=== PATIENT | male | born 1945 | race Caucasian/White ===

== ENCOUNTER 2017-09-26 15:53 | Observation (INO) | payer OTHER ==
[2017-09-26] MEDS ORDERED: NA CHLORIDE 0.9% 1,000 ML ONE (16:36)
--- NOTE | 2017-09-26 16:55 | RAD REPORT ---
EXAM DESCRIPTION: CT - Head Brain Wo Cont - 09/26/2017 4:46 pm CLINICAL HISTORY: Syncope COMPARISON: None. TECHNIQUE: Computed axial tomography of the head was obtained. IV contrast was not requested. All CT scans are performed using dose optimization technique as appropriate and may include automated exposure control or mA/KV adjustment according to patient size. FINDINGS: An intracranial bleed is not seen . The ventricles are normal in caliber. No extra-axial fluid collection is noted. Fluid within the sinuses/ mastoids is not seen. IMPRESSION: No acute intracranial abnormality is seen. If patient's symptoms persist MRI of the bra in would be recommended.
--- NOTE | 2017-09-26 17:09 | RAD REPORT ---
EXAM DESCRIPTION: Mary Single View09/26/2017 5:01 pm CLINICAL HISTORY: Hypertension and syncope COMPARISON: none FINDINGS: The lungs appear clear of acute infiltrate. The heart is normal size IMPRESSION: No acute abnormalities displayed
[2017-09-26 17:22] LABS: Absolute Lymphocytes (CBC) 1.5 K/uL (0.7-4.9); Absolute Monocytes 0.7 K/uL (0.1-1.3); Absolute Neutrophil 5.4 K/uL (1.8-8.0); Basophils % 0.5 % (0-1.3); Hematocrit 38.7 % (39.6-49.0); Lymphocytes % 18.5 % (15.3-44.8); MCH 30.6 pg (27.0-35.0); Monocytes % 8.3 % (3.3-12.3); RBC Red Blood Cell Count 4.35 M/uL (4.33-5.43)
[2017-09-26 17:25] LABS: Protime INR 1.05
[2017-09-26 17:27] LABS: Albumin 3.7 g/dL (3.4-5.0); Bilirubin Direct 0.2 mg/dL (0-0.2); Bilirubin Total 0.6 mg/dL (0.2-1.0); CKMB Creatine Kinase MB 2.4 ng/mL (0.3-3.6); Magnesium 1.9 mg/dL (1.8-2.4); Potassium 4.4 mmol/L (3.5-5.1); Protein, Total 6.7 g/dL (6.4-8.2)
[2017-09-26] MEDS ORDERED: ACETAMINOPHEN 500 MG TAB PO PRN (18:02)
[2017-09-26] MEDS ORDERED: ONDANSETRON 4 MG (ODT) TAB PO PRN (18:02)
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
[2017-09-26] MEDS ORDERED: D50W 25 GM/50 ML SYRINGE IV PRN (18:38)
[2017-09-26] MEDS ORDERED: GLUCAGON 1 MG/VIAL IM PRN (18:38)
--- NOTE | 2017-09-26 18:47 | EKG ---
Test Date: 2017-09-26 Test Time: 16:55:50 Nursing Admin: SHIVANI MEASUREMENT RESULTS: Intervals: Rate: 76 OK: 182 QRSD: 84 QT: 354 QTc: 398 [place]: P: 53 OK: 182 QRS: 8 T: 9 INTERPRETIVE STATEMENTS: Normal sinus rhythm Inferior infarct, age undetermined Abnormal ECG Compared to ECG 04/17/2015 01:40:57 Myocardial infarct finding now present Electronically Signed On 09-26-17 18:47:04 CDT by Deshawn Jimenez
[2017-09-26] MEDS: NA CHLORIDE 0.9% 1,000 ML IV SCH (19:00)
[2017-09-26 19:58] LABS: Urine Blood NEGATIVE (NEG); Urine Glucose NEGATIVE (NEG); Urine Protein NEGATIVE (NEG); Urine Specific Gravity >1.030 (1.005-1.030)
[2017-09-26] MEDS: INSULIN -REGULAR HUMAN 50 UNIT/0.5 ML ML SQ SCH (21:00)
[2017-09-26] MEDS ORDERED: ENOXAPARIN 40 MG/0.4 ML SQ SCH (21:00)
[2017-09-26] MEDS ORDERED: ATORVASTATIN 40 MG TAB PO SCH (21:00)
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
[2017-09-26 22:47] VITALS: BMI 30.4
[2017-09-27] MEDS: NA CHLORIDE 0.9% 1,000 ML IV SCH ×2 (01:58→05:00)
[2017-09-27 06:35] LABS: Absolute Lymphocytes (CBC) 2.2 K/uL (0.7-4.9); Absolute Monocytes 0.6 K/uL (0.1-1.3); Absolute Neutrophil 3.9 K/uL (1.8-8.0); Basophils % 0.5 % (0-1.3); Eosinophils % 5.8 % (0-4.4); Hematocrit 38.5 % (39.6-49.0); Lymphocytes % 30.4 % (15.3-44.8); MCH 31.3 pg (27.0-35.0); MCV 88.7 fL (80-100); MPV 8.7 fL (7.6-11.3); Monocytes % 8.9 % (3.3-12.3); RBC Red Blood Cell Count 4.34 M/uL (4.33-5.43)
[2017-09-27 06:47] LABS: Albumin 3.3 g/dL (3.4-5.0); Bilirubin Total 0.7 mg/dL (0.2-1.0); Potassium 4.4 mmol/L (3.5-5.1)
[2017-09-27] MEDS: INSULIN -REGULAR HUMAN 50 UNIT/0.5 ML ML SQ SCH ×2 (07:30→12:19)
[2017-09-27 08:14] VITALS: O2SAT 97
--- NOTE | 2017-09-27 08:41 | RAD REPORT ---
EXAM DESCRIPTION: VASCarotid Artery Bilateral09/26/2017 10:52 pm CLINICAL HISTORY: Syncope COMPARISON: None FINDINGS: The velocity of the right internal carotid artery equals 87 cm/sec. The right ICA/CCA rati o 0.9 The velocity of the left internal carotid artery equals 61 cm/sec. The left ICA/CCA ratio 0.5 Mild to moderate plaque is present within the carotid arteries. The vertebral arteries demonstrate antegrade flow IMPRESSION: Mild to moderate plaque within the carotid arteries without evidence of a hemodynamicall y significant stenosis
[2017-09-27] MEDS ORDERED: ASPIRIN EC 81 MG TAB PO SCH (09:00)
--- NOTE | 2017-09-27 10:07 | P.DS ---
Admission Date: 09/26/17 Discharge Date: 09/27/17 Disposition: ROUTINE DISCHARGE Discharge Condition: FAIR Brief History of Present Illness: Patient is 72 years of age admitted with dizziness Hospital Course: Patient has had dizziness for a number of years he was scheduled to see Neurology did not have any neurological deficit no evidence of cranial nerve or motor dysfunction denies any chronic headaches these episodes only last a few seconds and a worse 1 this time at the time of discharge doing well he is alert oriented responsive cooperative no weakness of extremities cranial nerves examination grossly normal there is no nystagmus laboratory data unremarkable I have instructed patient to follow-up with the neurologist in have an MRI done as soon as possible discontinue nonsteroidals for now CT scan of the head was negative for a stroke for it ultrasound minimal changes Vital Signs/Physical Exam: Temp Pulse Resp BP Pulse Ox 97.1 F 70 18 118/76 98 09/27/17 08:00 09/27/17 08:00 09/27/17 08:00 09/27/17 08:00 09/27/17 08:00 Laboratory Data at Discharge: WBC 7.2 K/uL (4.3-10.9) 09/27/17 05:44 Hgb 13.6 g/dL (13.6-17.9) 09/27/17 05:44 Hct 38.5 % (39.6-49.0) L 09/27/17 05:44 Plt Count 168 K/uL (152-406) 09/27/17 05:44 PT 12.4 SECONDS (9.5-12.5) 09/26/17 17:00 INR 1.05 09/26/17 17:00 APTT 22.9 SECONDS (24.3-36.9) L 09/26/17 17:00 Sodium 144 mmol/L (136-145) 09/27/17 05:44 Potassium 4.4 mmol/L (3.5-5.1) 09/27/17 05:44 BUN 17 mg/dL (7-18) 09/27/17 05:44 Creatinine 1.00 mg/dL (0.55-1.3) 09/27/17 05:44 Glucose 126 mg/dL (74-106) H 09/27/17 05:44 Magnesium 1.9 mg/dL (1.8-2.4) 09/26/17 17:00 Total Bilirubin 0.7 mg/dL (0.2-1.0) 09/27/17 05:44 AST 26 U/L (15-37) 09/27/17 05:44 ALT 38 U/L (12-78) 09/27/17 05:44 Alkaline Phosphatase 45 U/L (45-117) 09/27/17 05:44 Triglycerides 191 mg/dL (<150) H 09/27/17 05:44 Cholesterol 131 mg/dL (<200) 09/27/17 05:44 HDL Cholesterol 40 mg/dL (40-60) 09/27/17 05:44 Cholesterol/HDL Ratio 3.28 09/27/17 05:44 Home Medications: Aspirin Chewable [Aspirin Chewable*] 81 mg PO DAILY 09/26/17 Lisinopril [Zestril] 2.5 mg PO BEDTIME 09/26/17 Meclizine HCl [Antivert*] 50 mg PO DAILY 09/26/17 Metformin ER [Glucophage ER*] 1,000 mg PO DAILY 09/26/17 Metoprolol Tartrate [Lopressor] 25 mg PO DAILY 09/26/17 Simvastatin 60 mg PO BEDTIME 09/26/17 Terazosin HCl [Hytrin*] 8 mg PO BEDTIME 09/26/17 Patient Discharge Instructions: Patient to follow-up with Dr. Dom JOHNSON for an MRI scan. Patient to discontinue diclofenac may contribute to his dizziness Diet: Regular Activity: Ad guy Followup: Stiven Fernandes, [ACTIVE - CAN ADMIT] -
[2017-09-27 12:28] VITALS: BP 126/73; TEMP 97.8
== END 2017-09-27 13:34 | disposition home or self-care (01) ==
LOC: ER 15:53 → ERHOLD 18:06 → 4TH 19:23
PROVIDERS: ADMIT Family Medicine; ATTEND Family Medicine
DX: R42 Dizziness and giddiness (principal); E11.9 Type 2 diabetes mellitus without complications; E78.5 Hyperlipidemia, unspecified; I10 Essential (primary) hypertension; N40.0 Benign prostatic hyperplasia without lower urinary tract symptoms; R55 Syncope and collapse
CPT/HCPCS: 36415; 70450; 71045; 80048; 80053; 80061; 80076; 81003; 82550; 82553; 82962 ×3; 83735; 83880; 84484; 85025 ×2; 85610; 85730; 93005; 93880; 94760 ×2; 96360; 96361; 97163; 99285; G0378 ×2; J1650; J7030 ×2

== ENCOUNTER 2018-03-31 16:46 | Emergency (ER) | payer OTHER ==
--- OUTSIDE RECORDS SUMMARY | 2018-03-31 16:48 | XMS REPORT ---
:1945 Author Organization e[employer] Care Team Providers Name Role Phone Dom Stiven Provider Role Unavailable Allergies, Adverse Reactions, Alerts Substance Reaction Event Type codine Info Not Available Drug Allergy Problems Problem Type Condition Code Onset Dates Condition Status Assessment Medicare annual wellness visit, Z00.00 Active initial Assessment Dizziness of unknown cause R42 Active Problem Hyperlipemia, mixed E78.2 Active Problem GERD without esophagitis K21.9 Active Problem Seasonal allergies J30.2 Active Problem Benign prostatic hyperplasia, N40.0 Active unspecified whether lower urinary tract symptoms present Problem HTN, goal below 130/80 I10 Active Problem Controlled type 2 diabetes mellitus E11.9 Active without complication, without long-term current use of insulin Problem Dizziness of unknown cause R42 Active Assessment Adult BMI 29.0-29.9 kg/sq m Z68.29 Active Assessment Benign prostatic hyperplasia, N40.0 Active unspecified whether lower urinary tract symptoms present Assessment Hyperlipemia, mixed E78.2 Active Assessment GERD without esophagitis K21.9 Active Assessment HTN, goal below 130/80 I10 Active Assessment Seasonal allergies J30.2 Active Assessment Controlled type 2 diabetes mellitus E11.9 Active without complication, without long-term current use of insulin Medications Medication Code Code Instructions Start End Status Dosage System Date Date Lisinopril [facility] 36895813502 2.5 MG Orally Active 1 tablet Once a day Terazosin HCl [facility] 30565045294 2 MG Orally Active 2 capsule Once a day Fexofenadine HCl [facility] 77852642596 180 MG Orally Active 1 tablet Once a day as needed Metformin HCl [facility] 69594495432 1000 MG Orally Active 1 tablet Once a day with a meal Simvastatin [facility] 44702050923 20 MG Orally Active 3 tablet Once a day in the evening Aspirin 81 [facility] 44853122334 81 MG Orally Active 1 tablet Once a day Ranitidine HCl [facility] 69863228891 150 MG Orally Active 1 tablet Once a day at bedtime Meclizine HCl [facility] 15658969089 25 MG Orally Active 2 tablets Once a day as needed Metoprolol [facility] 95290878886 50 MG Orally Active 0.25 Succinate ER Once a day tablet Results No Known Results Summary Purpose eClinicalWorks Submission
[2018-03-31 17:18] LABS: Absolute Lymphocytes (CBC) 1.8 K/uL (0.7-4.9); Absolute Monocytes 0.7 K/uL (0.1-1.3); Basophils % 0.6 % (0-1.3); Eosinophils % 3.9 % (0-4.4); Lymphocytes % 22.9 % (15.3-44.8); MPV 8.4 fL (7.6-11.3); Monocytes % 8.4 % (3.3-12.3); Protime INR 1.07; RBC Red Blood Cell Count 4.63 M/uL (4.33-5.43)
--- NOTE | 2018-03-31 17:52 | RAD REPORT ---
EXAM DESCRIPTION: Mary Single View03/31/2018 5:27 pm CLINICAL HISTORY: Chest pain COMPARISON: September 2017 FINDINGS: The lungs appear clear of acute infiltrate. The heart is normal size ekg monitor tech device overlies the left chest IMPRESSION: No acute abnormalities displayed
[2018-03-31 18:05] LABS: ALT/SGPT 32 U/L (12-78); AST/SGOT 20 U/L (15-37); Albumin 3.9 g/dL (3.4-5.0); Alkaline Phosphatase 67 U/L (45-117); BUN Blood Urea Nitrogen 23 mg/dL (7-18); Bicarbonate 24 mmol/L (21-32); Bilirubin Direct 0.1 mg/dL (0-0.2); Bilirubin Total 0.4 mg/dL (0.2-1.0); Glucose Level 104 mg/dL (74-106); Magnesium 1.9 mg/dL (1.8-2.4); NT PRO-BNP 16 pg/mL (<125); Potassium 4.4 mmol/L (3.5-5.1); Protein, Total 7.3 g/dL (6.4-8.2); Sodium Level 143 mmol/L (136-145); Troponin (Emerg Dept Use Only) < 0.02 ng/mL (0.0-0.045)
--- NOTE | 2018-03-31 18:53 | EDPHYS ---
Physician Documentation [facility] Name: Balaji Juarez Age: 72 yrs Sex: Male : 1945 Arrival Date: 03/31/2018 Time: 16:51 Bed 5 Private MD: ED Physician Brock George HPI: 03/31 17:05 This 72 yrs old Male presents to ER via Ambulatory with complaints of cp Irregular heartbeat. 17:05 The patient has experienced near-syncope, almost passed out, felt dizzy. cp 17:05 Onset: The symptoms/episode began/occurred today. Duration: This was a single episode. cp Associated injury: The patient did not suffer any apparent associated injury. Associated signs and symptoms: Pertinent negatives: abdominal pain, blurred vision, chest pain, diaphoresis, headache, palpitations, weakness. Current symptoms: Currently, the patient is not experiencing any symptoms. Patient reports having loop cafeteria monitor placed by [facility] last year. Patient reports he was informed that cafeteria monitor recorded 4 second pause today when patient had symptoms. Historical: - Allergies: 17:04 Codeine; ph - Home Meds: 17:04 Metoprolol Tartrate Oral [Active]; Metformin Oral [Active]; aspirin 81 mg Oral chew ph [Active]; - PMHx: 17:04 Diabetes - NIDDM; Hypertension; ph - PSHx: 17:04 Carpal Tunnel Repair; BACK SURGERY; Tonsillectomy; ph - Immunization history:: Adult Immunizations unknown. - Social history:: Smoking status: Patient/guardian denies using tobacco. - Ebola Screening: : No symptoms or risks identified at this time. ROS: 17:08 Constitutional: Negative for body aches, chills, fever, poor PO intake. cp 17:08 Eyes: Negative for injury, pain, redness, and discharge. cp 17:08 ENT: Negative for drainage from ear(s), ear pain, sore throat, difficulty swallowing, difficulty handling secretions. 17:08 Cardiovascular: Negative for chest pain, edema, palpitations. 17:08 Respiratory: Negative for cough, shortness of breath, wheezing. 17:08 Abdomen/GI: Negative for abdominal pain, vomiting, diarrhea, constipation, black/tarry stool, rectal bleeding. 17:08 Skin: Negative for cellulitis, rash. 17:08 Neuro: Positive for dizziness, near syncope, Negative for altered mental status, headache, weakness. 17:08 All other systems are negative. Exam: 17:02 ECG was reviewed by the Attending Physician. cp 17:15 Constitutional: The patient appears in no acute distress, alert, awake, cp non-diaphoretic, non-toxic, well developed, well nourished. 17:15 Head/Face: Normocephalic, atraumatic. cp 17:15 Eyes: Pupils equal round and reactive to light, extra-ocular motions intact. Lids and lashes normal. Conjunctiva and sclera are non-icteric and not injected. Cornea within normal limits. Periorbital areas with no swelling, redness, or edema. ENT: Nares patent. No nasal discharge, no septal abnormalities noted. Tympanic membranes are normal and external auditory canals are clear. Oropharynx with no redness, swelling, or masses, exudates, or evidence of obstruction, uvula midline. Mucous membranes moist. Chest/axilla: Normal chest wall appearance and motion. Nontender with no deformity. No lesions are appreciated. 17:15 Cardiovascular: Rate: tachycardic, Rhythm: regular, Pulses: Pulses are 2+ in right radial artery and left radial artery. Edema: is not appreciated, JVD: is not appreciated. 17:15 Respiratory: the patient does not display signs of respiratory distress, Respirations: normal, no use of accessory muscles, no retractions, no splinting, no tachypnea, labored breathing, is not present, Breath sounds: are clear throughout, no decreased breath sounds, no stridor, no wheezing. 17:15 Abdomen/GI: Inspection: abdomen appears normal, Bowel sounds: active, all quadrants, Palpation: abdomen is soft and non-tender, in all quadrants. 17:15 Back: pain, is absent, ROM is normal. 17:15 Skin: cellulitis, is not appreciated, no rash present. 17:15 Neuro: Orientation: to person, place \T\ time. Mentation: is normal, Cerebellar function: is grossly normal, Motor: is normal, Sensation: is normal. Vital Signs: 17:03 BP 120 / 77; Pulse 103; Resp 18; Temp 97.8; Pulse Ox 100% on R/A; Weight 92.99 kg; ph Height 5 ft. 7 in. (170.18 cm); Pain 0/10; 17:30 Pulse 98; Resp 20; Pulse Ox 98% ; sv 17:38 BP 120 / 82; Pulse 97; Resp 18; Pulse Ox 96% ; sv 18:09 BP 116 / 76; Pulse 93 MON; Resp 18; Pulse Ox 97% ; sv 18:51 BP 120 / 76; Pulse 96; Resp 14; Pulse Ox 98% ; sv 17:03 Body Mass Index 32.11 (92.99 kg, 170.18 cm) ph 18:09 Sinus Rhythm sv MDM: 16:55 Patient medically screened. cp 17:25 Differential Diagnosis: cardiac arrhythmia, drug effect, GI bleed, transient ischemic cp attack. 18:15 Data reviewed: vital signs, nurses notes, lab test result(s), EKG, radiologic studies, cp plain films. 18:15 Test interpretation: by ED physician or midlevel provider: ECG, plain radiologic cp studies. Counseling: I had a detailed discussion with the patient and/or guardian regarding: the historical points, exam findings, and any diagnostic results supporting the discharge/admit diagnosis, lab results, radiology results, the need for further work-up and treatment in the hospital. 18:30 ED course: VSS. pathology secretary/transcriptionist spoke with [place] transfer center who reports that they are cp unable to accept transfers at this time and to attempt in morning. 18:50 Refusal of service: The patient/guardian displays adequate decision making capability cp and despite a detailed discussion of alternatives, benefits, risks, and consequences refuses: Admission to the hospital for further work-up and treatment. 03/31 16:59 Order name: Basic Metabolic Panel; Complete Time: 18:07 cp 03/31 18:07 Interpretation: Normal except: CL 111; BUN 23; CRE 1.44; GFR 48; CA 8.3. cp 03/31 16:59 Order name: CBC with Diff; Complete Time: 17:27 cp 03/31 17:28 Interpretation: Reviewed. cp 03/31 16:59 Order name: LFT's; Complete Time: 18:07 cp 03/31 16:59 Order name: Magnesium; Complete Time: 18:07 cp 03/31 16:59 Order name: NT PRO-BNP; Complete Time: 18:07 cp 03/31 16:59 Order name: PT-INR; Complete Time: 17:27 cp 03/31 17:28 Interpretation: PT 12.6; Reviewed. cp 03/31 16:59 Order name: Troponin (emerg Dept Use Only); Complete Time: 18:07 cp 03/31 18:08 Interpretation: Within normal limits: TROPED < 0.02. 03/31 16:59 Order name: EKG; Complete Time: 17:00 cp 03/31 16:59 Order name: Cardiac monitoring; Complete Time: 17:32 03/31 16:59 Order name: EKG - Nurse/Tech; Complete Time: 17:32 cp 03/31 16:59 Order name: IV Saline Lock; Complete Time: 17:32 cp 03/31 16:59 Order name: Labs collected and sent; Complete Time: 17:32 cp 03/31 16:59 Order name: O2 Per Protocol; Complete Time: 17:32 cp 03/31 16:59 Order name: XRAY Chest (1 view); Complete Time: 17:57 cp 03/31 17:58 Interpretation: Report review. 03/31 16:59 Order name: O2 Sat Monitoring; Complete Time: 17:33 cp EC:02 Rate is 98 beats/min. Rhythm is regular. SD interval is normal. QRS interval is normal. cp QT interval is normal. T waves are Inverted in lead III. Interpreted by me. Reviewed by me. Administered Medications: No medications were administered Disposition: 04/01 06:16 Co-signature as Attending Physician, Brock George MD. rn Disposition: 03/31/18 18:52 Patient has left against medical advice. Impression: Dizziness, Near-syncope. - Patients states they are going to Home. - Condition is Stable. - Discharge Instructions: Dizziness, Near-Syncope. Follow up: Private Physician; When: Tomorrow; Reason: Recheck today's complaints. - Problem is an ongoing problem. - Symptoms have improved. Signatures: Dispatcher [employer] EDMS Kayla Sandra RN RN aa1 Brock George MD MD rn Hall, Patricia, RN RN ph Caro, GABRIELLE Zhao cp Corrections: (The following items were deleted from the chart) 03/31 18:08 18:07 Normal except: CL 111; BUN 23; CRE 1.44; GFR 48. cp cp 19:14 18:52 03/31/2018 18:52 Patients has left against medical advice. Impression: Dizziness; aa1 Near-syncope. Patient states they are going to Home. Condition is Stable. Follow up: Private Physician; When: Tomorrow; Reason: Recheck today's complaints. Problem is an ongoing problem. Symptoms have improved. cp
--- NOTE | 2018-03-31 18:53 | ER ---
Nurse's Notes [facility] Name: Balaji Juarez Age: 72 yrs Sex: Male : 1945 Arrival Date: 03/31/2018 Time: 16:51 Bed 5 Private MD: Diagnosis: Dizziness;Near-syncope Presentation: 03/31 17:01 Presenting complaint: Patient states: I had an internal heart monitor placed because I ph kept passing out, today I got really dizzy and almost passed out so I called the monitoring company and they said that I had a 4 second pause in my heart rhythm." Pt denies dizziness at this time, also denies chest pain, N/V, SOB or palpitations. Transition of care: patient was not received from another setting of care. Onset of symptoms was March 31, 2018. Risk Assessment: Do you want to hurt yourself or someone else? Patient reports no desire to harm self or others. Initial Sepsis Screen: Does the patient meet any 2 criteria? No. Patient's initial sepsis screen is negative. Does the patient have a suspected source of infection? No. Patient's initial sepsis screen is negative. Care prior to arrival: None. 17:01 Method Of Arrival: Ambulatory ph 17:01 Acuity: JOANNA 2 ss Historical: - Allergies: 17:04 Codeine; ph - Home Meds: 17:04 Metoprolol Tartrate Oral [Active]; Metformin Oral [Active]; aspirin 81 mg Oral chew ph [Active]; - PMHx: 17:04 Diabetes - NIDDM; Hypertension; ph - PSHx: 17:04 Carpal Tunnel Repair; BACK SURGERY; Tonsillectomy; ph - Immunization history:: Adult Immunizations unknown. - Social history:: Smoking status: Patient/guardian denies using tobacco. - Ebola Screening: : No symptoms or risks identified at this time. Screenin:19 Abuse screen: Denies threats or abuse. Denies injuries from another. Nutritional sv screening: No deficits noted. Tuberculosis screening: No symptoms or risk factors identified. Fall Risk None identified. Assessment: 17:05 General: Appears in no apparent distress. comfortable, well developed, Behavior is sv calm, cooperative, appropriate for age. Pain: Denies pain. Neuro: Level of Consciousness is awake, alert, obeys commands, Oriented to person, place, time, situation, Moves all extremities. Speech is normal, Reports feeling like he was going to pass out earlier.. Cardiovascular: Heart tones S1 S2 present Patient's skin is warm and dry. Rhythm is sinus rhythm. Respiratory: Airway is patent Respiratory effort is even, unlabored, Respiratory pattern is regular, symmetrical, Breath sounds are clear bilaterally. Derm: Skin is pink, warm \\T\\ dry. 17:22 Reassessment: Spoke with Ector Diaz, outside medical sales representative with [facility] at [phone], who sv stated that the pt has a loop recorder and it has bluetooth capability. Reports the pt had a 4 second pause and 2-3 second pauses with escaped beats that were recorded at around 1309 today. Pt was advised to go to the nearest ER. Pt due to have a permanent pacemaker at the [facility]. Informed Pavel ANTHONY. 18:29 Reassessment: Patient appears in no apparent distress at this time. No changes from sv previously documented assessment. Patient and/or family updated on plan of care and expected duration. Pain level reassessed. Patient is alert, oriented x 3, equal unlabored respirations, skin warm/dry/pink. 18:48 Reassessment: Patient appears in no apparent distress at this time. No changes from sv previously documented assessment. Patient and/or family updated on plan of care and expected duration. Pain level reassessed. Patient is alert, oriented x 3, equal unlabored respirations, skin warm/dry/pink. Pt stated that he is going to leave. Informed Pavel ANTHONY. He went in to speak with them. 18:57 Reassessment: Pt is calling his insurance company before leaving AMA. sv 19:09 Reassessment: Patient appears in no apparent distress at this time. Patient is alert, aa1 oriented x 3, equal unlabored respirations, skin warm/dry/pink. Pt reports after speaking with his insurance company he still wishes to sign out AMA from facility. AMA form signed. Amb with steady gait to lobby with spouse. Denies questions or concerns. Vital Signs: 17:03 BP 120 / 77; Pulse 103; Resp 18; Temp 97.8; Pulse Ox 100% on R/A; Weight 92.99 kg; ph Height 5 ft. 7 in. (170.18 cm); Pain 0/10; 17:30 Pulse 98; Resp 20; Pulse Ox 98% ; sv 17:38 BP 120 / 82; Pulse 97; Resp 18; Pulse Ox 96% ; sv 18:09 BP 116 / 76; Pulse 93 MON; Resp 18; Pulse Ox 97% ; sv 18:51 BP 120 / 76; Pulse 96; Resp 14; Pulse Ox 98% ; sv 17:03 Body Mass Index 32.11 (92.99 kg, 170.18 cm) ph 18:09 Sinus Rhythm sv ED Course: 16:51 Patient arrived in ED. mr 16:55 Pavel Elizondo PA is PHCP. cp 16:55 Brock George MD is Attending Physician. cp 17:00 EKG done, by ED staff, reviewed by Pavel ANTHONY. sv 17:01 Leyda Toussaint, RN is Primary Nurse. ss 17:03 Triage completed. ph 17:04 Arm band placed on Patient placed in an exam room, on a stretcher, on cardiac cath tech, ph on pulse oximetry. 17:05 Patient has correct armband on for positive identification. Placed in gown. Bed in low sv position. Call light in reach. Adult w/ patient. motorsports technician on. Pulse ox on. NIBP on. Door closed. Head of bed elevated. 17:05 Initial lab(s) drawn, by me, sent to lab. Inserted saline lock: 20 gauge in right sv antecubital area, using aseptic technique. Blood collected. Flushed right antecubital with 5 ml normal saline. 17:25 XRAY Chest (1 view) In Process Unspecified. EDMS 18:04 attempted transfer to [facility], spoke with isael chery, was in formed that they bd would not be able to accept pt at this time due to no beds. was told to attempt transfer again in the morning. 18:08 Awaiting re-evaluation by ER provider. sv 19:01 Report given to Kayla RN and Pili RN. sv 19:04 Primary Nurse role handed off by Leyda Toussaint, RAY sv 19:09 No provider procedures requiring assistance completed. IV discontinued, intact, aa1 bleeding controlled, No redness/swelling at site. Pressure dressing applied. Administered Medications: No medications were administered Outcome: 19:09 AMA AMA form signed aa1 19:09 Condition: stable 19:09 Instructed on the need for admit, Demonstrated understanding of instructions. 19:14 Patient left the ED. aa1 Signatures: Dispatcher [employer] EDMS Kristi Kennedy Stephanie, RN RN sv Kayla Sandra RN RN aa1 Irish AndersonIesha RN RN ss Neyda Baker RN RN ph Pavel Elizondo PA PA cp Corrections: (The following items were deleted from the chart) 17:10 17:01 Acuity: JOANNA 3 ph ss 17:33 17:22 Reassessment: Spoke with Ector Diaz, outside medical sales representative with [facility] [facility], who stated sv that the pt has a loop recorder and it has bluetooth capability. Reports the pt had a 4 second pause and 2-3 second pauses with escaped beats that were recorded at around 1309 today. Pt was advised to go to the nearest ER. Pt due to have a permanent pacemaker at the [facility]. Informed Pavel ANTHONY. sv
[2018-03-31 19:21] VITALS: TEMP 97.8
[2018-03-31 19:26] VITALS: BP 120/76; O2SAT 98
--- NOTE | 2018-03-31 19:37 | EKG ---
Test Date: 2018-03-31 Test Time: 16:57:40 Family Health Nurse Practitioner: CHRIS MEASUREMENT RESULTS: Intervals: Rate: 98 NJ: 174 QRSD: 72 QT: 336 QTc: 428 Gibson: P: 21 NJ: 174 QRS: -2 T: -3 INTERPRETIVE STATEMENTS: Normal sinus rhythm Normal ECG Compared to ECG 09/26/2017 16:55:50 Myocardial infarct finding no longer present Electronically Signed On 03-31-18 19:36:49 PASTRY WRAPPER by Deshawn Jimenez
== END 2018-03-31 19:14 | disposition left against medical advice (07) ==
LOC: ER 16:46
DX: R42 Dizziness and giddiness (principal); R55 Syncope and collapse; Z95.818 Presence of other cardiac implants and grafts; E11.9 Type 2 diabetes mellitus without complications; I10 Essential (primary) hypertension; Z79.84 Long term (current) use of oral hypoglycemic drugs; Z79.82 Long term (current) use of aspirin; Z79.899 Other long term (current) drug therapy
CPT/HCPCS: 36415; 71045; 80048; 80076; 83735; 83880; 84484; 85025; 85610; 93005; 99284